=== PATIENT | female | born 1985 | race Caucasian/White ===

== ENCOUNTER 2016-09-25 09:59 | Emergency (ER) | payer OTHER ==
[2016-09-25 10:58] VITALS: BP 121/64
--- NOTE | 2016-09-25 12:11 | RAD ---
INDICATION: Right ankle injury. TECHNIQUE: 3 views of the right ankle were obtained. FINDINGS: Soft tissue swelling is noted along the anterolateral aspect of the ankle. No fracture is seen. Joint spaces appear maintained. IMPRESSION: SOFT TISSUE SWELLING, NO FRACTURE IS SEEN.
--- NOTE | 2016-09-25 12:12 | RAD ---
INDICATION: Right foot injury. TECHNIQUE: 2 views of the right foot were obtained. FINDINGS: The bones are in normal alignment. There is a small linear bony density adjacent to the anterior lateral aspect of the calcaneus possibly representing a small avulsion fracture fragment. IMPRESSION: POSSIBLE SMALL AVULSION FRACTURE FRAGMENT ARISING FROM THE ANTERIOR LATERAL CALCANEUS.
--- NOTE | 2016-10-07 16:59 | UC ---
Anabelle Pardo Anna, scribed for Sarika Mayes MD on 09/25/16 at 1117 . Lower Extremity/Ankle HPI - HPI Summary HPI Summary: Patient is a 30 y/o female coming [place] [facility] [place] with sudden onset of right ankle pain that began when she walked outside and rolled her ankle this morning. She fell from a standing height and landed on her knee and her left upper extremity. She describes the ankle pain as a sharp, constant ache with severity 10/10. She feels like there is a bubble in her upper left back. The patient is currently 29 weeks . The pain is exacerbated by standing and walking. She denies knee pain. Denies any bleeding. She feels the baby moving as normal. She denies Hx of DM. She has a standing appointment with Dr. Castro ([facility]) on 10/04. She last saw Dr. Castro last week, and all was well at that time. 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 - Accompanied by significant other Onset/Duration: Sudden Onset, Lasting Hours, Still Present Severity Initially: Moderate Severity Currently: Moderate Pain Intensity: 10 Pain Scale Used: 0-10 Numeric Aggravating Factor(s): Standing, Ambulation - Allergies/Home Medications Allergies/Adverse Reactions: Allergies Allergy/AdvReac Type Severity Reaction Status Date / Time No Known Allergies Allergy Verified 03/06/13 15:14 Home Medications: Home Medications Vitamin TAB* 09/25/16 [History] PMH/Surg Hx/FS Hx/Imm Hx Cardiovascular History Of: Denies: Hypertension GI/ History Of: Reports: Renal Disease - frequent kidney infections Psychological History Of: Reports: Depression - Surgical History Surgical History: Yes Surgery Procedure, Year, and Place: 03/03/13 D&C, GASTRIC SLEEVE 12/10/13 - Family History Known Family History: Positive: Other - FHx depression Negative: Cardiac Disease, Diabetes - Social History Occupation: Employed Full-time Lives: With Family Alcohol Use: None Substance Use Type: None Smoking Status (MU): Heavy Every Day Tobacco Smoker Type: Cigarettes Amount Used/How Often: daily Have You Smoked in the Last Year: Yes Household Exposure Type: Cigarettes - Immunization History Most Recent Influenza Vaccination: 03/24/15 Most Recent Tetanus Shot: 04/20/15 Most Recent Pneumonia Vaccination: never Review of Systems Constitutional: Negative Skin: Negative Eyes: Negative ENT: Negative Respiratory: Negative Cardiovascular: Negative Gastrointestinal: Negative Genitourinary: Negative Motor: Negative Neurovascular: Negative Musculoskeletal: Arthralgia, Myalgia Neurological: Negative Psychological: Negative All Other Systems Reviewed And Are Negative: Yes Physical Exam Triage Information Reviewed: Yes Appearance: Well-Nourished Vital Signs: Initial Vital Signs Temp 98.0 F 09/25/16 10:52 Pulse 84 09/25/16 10:52 Resp 16 09/25/16 10:52 BP 121/64 09/25/16 10:52 Pulse Ox 100 09/25/16 10:52 Vital Signs Reviewed: Yes Eye Exam: Normal ENT Exam: Normal Neck exam: Normal, Other - No adenopathy appreciated Respiratory Exam: Other - Little bit of tenderness left of mid-thoracic area on the back. Respiratory: Positive: No accessory muscle use, Wheezing - Expiratory wheezes throughout Cardiovascular Exam: Normal Cardiovascular: Positive: RRR, No Murmur, Pulses Normal, Brisk Capillary Refill Abdominal Exam: Normal Abdomen Description: Positive: Nontender, No Organomegaly, Soft Bowel Sounds: Positive: Present Musculoskeletal: Positive: Strength Intact, Edema @ - Talo-fibula ligament swollen. Did not appreciate any alice abnormality. Good pulses., Other: - 2 x 1.5 cm partial thickness abrasion on right knee. Little crepitus over the patella on the right knee. Otherwise nontender. Neurological Exam: Normal - Nonfocal, grossly intact Psychological Exam: Normal - conversing easily and appropriately Skin Exam: Normal - No visible or reported rash Diagnostics - Radiology Right Foot XR Xray Interpretation: Positive (See Comments) Radiology Interpretation Completed By: Radiologist - IMPRESSION: POSSIBLE SMALL AVULSION FRACTURE FRAGMENT ARISING FROM THE ANTERIOR LATERAL CALCANEUS. Right Ankle XR Xray Interpretation: Positive (See Comments) Radiology Interpretation Completed By: Radiologist - IMPRESSION: SOFT TISSUE SWELLING, NO FRACTURE IS SEEN. Re-Evaluation - Re-Evaluation First Eval Re-Evaluation Time: 12:14 Comment: Discussed results of XR and plan of care. Second Eval Re-Evaluation Time: 12:46 Comment: Discussed conversation with Dr. Anguiano and plan of care. Patient and family are agreeable with plan. Lower Extremity Course/Dx - Course Course Of Treatment: Denies need for inhaler but says she does have one at home if needed. Patient says she can take Tylenol. Crutches (she thinks she can tolerate crutches). She has a standing appointment with Dr. Castro on 10/04. No new problems in CCC. Considered below differential diagnoses. Reviewed Xray reports with Ms. Barbosa, and need recommendation for f/u pcp. Othopedic referral given. Questions answered as posed as possible. - Differential Dx/Diagnosis Provider Diagnoses: Acute R ankle sprain, with avulsion fx - Physician Notifications Discussed Patient Care With: Dr. Anguiano (orthopedics) at 1225. Agrees that the patient should be able to use a CAM boot and crutches. Discharge - Discharge Plan Condition: Stable Disposition: HOME Patient Education Materials: Ankle Sprain (ED), Contusion in Adults (ED), Avulsion Fracture (ED) Forms: *Work Release Referrals: Rajinder Castro MD [Medical Doctor] - Eder Anguiano MD [Medical Doctor] - Ben Peralta MD [Primary Care Provider] - Additional Instructions: Please follow up with your primary care provider and ObGyn provider per routine. Follow up with Dr. Anguiano (orhopedic surgeon) this week, if possible. Seek medical attention for worsening problems in the meantime. The documentation as recorded by the Anabelle gayle Anna accurately reflects the service I personally performed and the decisions made by me, Sarika aMyes MD.
== END 2016-09-25 13:06 | disposition home or self-care (01) ==
LOC: UCEAST 09:59
DX: O26.893 Other specified pregnancy related conditions, third trimester (principal); S93.401A Sprain of unspecified ligament of right ankle, initial encounter; S80.211A Abrasion, right knee, initial encounter; W19.XXXA Unspecified fall, initial encounter; Z3A.29 29 weeks gestation of pregnancy; Y93.9 Activity, unspecified; Y92.9 Unspecified place or not applicable; F17.210 Nicotine dependence, cigarettes, uncomplicated
CPT/HCPCS: 99212; G0463

== ENCOUNTER 2016-12-04 07:30 | Inpatient (IN) | payer OTHER ==
[2016-12-04] MEDS ORDERED: Oxytocin in LR* 20 UNITS/1,000 ML BAG IVPB ONE (09:00)
[2016-12-04] MEDS ORDERED: Oxytocin in LR* 20 UNITS/1,000 ML BAG IVPB SCH (09:00)
[2016-12-04 10:37] LABS: Hematocrit 38 % (35-47); Hemoglobin 12.2 g/dl (12.0-16.0); Mean Corpuscular HGB Conc 32 g/dl (31-36); Mean Corpuscular Hemoglobin 26 pg (27-31); Mean Corpuscular Volume 81 fL (80-97); Mean Platelet Volume 9 um3 (7.4-10.4); Red Blood Count 4.71 10^6/ul (4.0-5.4); Red Cell Distribution Width 24 % (10.5-15); White Blood Count 13.1 10^3/ul (3.5-10.8)
[2016-12-04 10:41] LABS: Add Diff/Slide Review? Slide Review Added; Comments Flag Yes
[2016-12-04] MEDS ORDERED: Glycerin ADULT SUPP PR PRN (15:13)
[2016-12-04] MEDS ORDERED: Dibucaine 1% 28.35 GM TUBE PR PRN (15:13)
[2016-12-04] MEDS ORDERED: Witch Hazel PAD* JAR TOPICAL PRN (15:13)
[2016-12-04] MEDS: Ibuprofen TAB* 600 MG PO PRN ×2 (15:31→21:29)
[2016-12-04] MEDS: Acetaminophen TAB* 325 MG PO PRN ×2 (16:37→20:38)
[2016-12-04] MEDS ORDERED: Simethicone CHEW TAB* 80 MG PO SCH (17:30)
[2016-12-04] MEDS: Docusate CAP* 100 MG PO SCH (20:37)
[2016-12-05] MEDS: Acetaminophen TAB* 325 MG PO PRN ×3 (00:33→14:03)
[2016-12-05] MEDS: Ibuprofen TAB* 600 MG PO PRN ×2 (03:53→10:10)
[2016-12-05] MEDS: Docusate CAP* 100 MG PO SCH ×2 (08:36→14:03)
[2016-12-05] MEDS ORDERED: Omeprazole CAP* 20 MG PO SCH (09:00)
[2016-12-05] MEDS: Ferrous Gluconate TAB* 324 MG TAB PO SCH ×2 (09:02→10:10)
[2016-12-05 09:34] LABS: Hematocrit 29 % (35-47); Hemoglobin 9.3 g/dl (12.0-16.0); Mean Corpuscular HGB Conc 32 g/dl (31-36); Mean Corpuscular Hemoglobin 26 pg (27-31); Mean Corpuscular Volume 81 fL (80-97); Mean Platelet Volume 8 um3 (7.4-10.4); Red Blood Count 3.58 10^6/ul (4.0-5.4); Red Cell Distribution Width 23 % (10.5-15); White Blood Count 13.9 10^3/ul (3.5-10.8)
[2016-12-05 09:41] LABS: Add Diff/Slide Review? Slide Review Added; Comments Flag Yes
[2016-12-05 10:38] LABS: Eosinophils % 2 % (0-6); Neutrophil % 72 % (38-83); RBC Morphology Normal (Normal)
[2016-12-05] MEDS ORDERED: medroxyPROGESTERone ACETATE (DEPOT)* 150 MG/ML 1 ML IM ONE (11:00)
[2016-12-05 11:41] VITALS: BP 112/60
== END 2016-12-05 15:43 | disposition home or self-care (01) | DRG 560 ==
LOC: MCHOBOUT 07:30 → MCHOB 08:36
PROVIDERS: ADMIT Obstetrics & Gynecology; ATTEND Obstetrics & Gynecology
PROC: 10E0XZZ Delivery of Products of Conception, External Approach (ICD-10-PCS; principal; 2016-12-04)
PROC: 10907ZC Drainage of Amniotic Fluid, Therapeutic from Products of Conception, Via Natural or Artificial Opening (ICD-10-PCS; 2016-12-04)
PROC: 4A1HX4Z Monitoring of Products of Conception, Cardiac Electrical Activity, External Approach (ICD-10-PCS; 2016-12-04)
DX: O40.3XX0 Polyhydramnios, third trimester, not applicable or unspecified (principal); F17.200 Nicotine dependence, unspecified, uncomplicated; O99.334 Smoking (tobacco) complicating childbirth; Z98.84 Bariatric surgery status; Z3A.39 39 weeks gestation of pregnancy; Z37.0 Single live birth; Z82.49 Family history of ischemic heart disease and other diseases of the circulatory system; Z83.3 Family history of diabetes mellitus; O76 Abnormality in fetal heart rate and rhythm complicating labor and delivery; O32.6XX0 Maternal care for compound presentation, not applicable or unspecified
CPT/HCPCS: 36415; 85025; 86850; 86900; 86901; A9270-GY; J1050

== ENCOUNTER 2017-02-06 06:30 | Day surgery (SDC) | payer OTHER ==
[~2017-02-06 06:30] MED LIST: Buffered Lidocaine 0.9% SYRIN* 5 ML/SYR SYRINGE INTRADERM ONE; Dexamethasone IV* 4 MG/ML 1 ML (4 MG) IV SLOW PU ONE; Dexamethasone TAB* 4 MG PO ONE; Famotidine IV* 10 MG/ML 2 ML (20 mg) IV ONE
[2017-02-06] MEDS ORDERED: Famotidine IV* 10 MG/ML 2 ML (20 mg) ONE (06:41)
[2017-02-06] MEDS ORDERED: Dexamethasone IV* 4 MG/ML 1 ML (4 MG) ONE (06:41)
[2017-02-06] MEDS ORDERED: ceFOXitin 2 GM IVPREMIX* 2 GM/50 ML BAG ONE (06:42)
[2017-02-06 07:11] LABS: UR Preg Internal Control QC Line Present
[2017-02-06] MEDS ORDERED: Bupivacaine 0.5% W/EPI SDV* 10 ML VIAL INJ ONE (07:14)
[2017-02-06] MEDS ORDERED: fentaNYL* 50 MCG/ML 2 ML VIAL (100 MCG VIAL) ONE ×3 (07:36→09:02)
[2017-02-06] MEDS ORDERED: Midazolam* 1 MG/ML 2 ML VIAL (2 MG) ONE (07:36)
[2017-02-06] MEDS ORDERED: Propofol* 10 MG/ML 20 ML BTL IV PUSH ONE (07:37)
[2017-02-06] MEDS ORDERED: Lidocaine 2% PF * 5 ML VIAL ONE (07:37)
[2017-02-06] MEDS ORDERED: Succinylcholine* 20 MG/ML 10 ML VIAL ONE (07:45)
[2017-02-06] MEDS ORDERED: DiMENhydriNATE IV* 50 MG/ML VIAL IV PUSH PRN (08:51)
[2017-02-06] MEDS: fentaNYL* 50 MCG/ML 2 ML VIAL (100 MCG VIAL) IV PRN ×2 (09:03→09:28)
[2017-02-06] MEDS ORDERED: oxyCODONE/Acetamin 5/325 MG* TAB ONE (09:06)
[2017-02-06 09:29] VITALS: BP 145/95
--- NOTE | 2017-02-07 03:51 | OP ---
DATE OF OPERATION: 02/06/17 [facility] DATE OF : 81 SURGEON: Rajinder Castro MD ANODE BUILDER: Kristie Hayes NP ANESTHESIOLOGIST: Rafy Gar MD ANESTHESIA: General anesthetic with endotracheal intubation. PRE-OP DIAGNOSIS: Multiparity, the patient desires permanent surgical sterilization. POST-OP DIAGNOSIS: Multiparity, the patient desires permanent surgical sterilization. OPERATIVE PROCEDURE: Bilateral laparoscopic tubal ligation with Filshie clips. ESTIMATED BLOOD LOSS: None. SPECIMEN: There were no specimens sent to Pathology. IV FLUIDS: She received 500 cc of IV crystalloid fluid. URINE OUTPUT: Clear. FINDINGS: Laparoscopic findings reveal a normal uterus, tubes and ovaries bilaterally with normal bowel, bladder and liver edge and there were no complications. DESCRIPTION OF PROCEDURE: The patient was taken to the operating room, where she was identified. She was placed on the operating table where a general anesthetic was obtained without difficulty. She was then placed in the dorsal lithotomy position, prepped and draped in a normal sterile fashion. Attention was then brought on to the patient's perineum where the bladder was catheterized with a Howard catheter and drained of clear urine. A speculum was then inserted into the vagina. The cervix was identified, grasped with a single -tooth tenaculum. The uterus was then sounded and after sounding the uterus a ClearView uterine manipulator was introduced to the cervix and the balloon and the manipulator were insufflated with 4 cc of sterile water. The single tooth tenaculum was removed as well as the speculum. Attention was then brought on to the patient's abdomen where a 1 cm infraumbilical skin incision was made with a knife and carried through to the underlying layer of fascia. The fascia was then brought up to the incision and nicked in the midline with a knife. Entry into the patient's abdomen was then confirmed using a Sabina clamp. The Bayron clamps on the fascia were then replaced with 0 Polysorb sutures and through this incision a 10 mm scope was introduced. The scope was attached to the 0 Polysorb sutures and the balloon and scope was insufflated with 20 cc of air. At this point, the patient's abdomen was insufflated with CO2 gas. A survey of the patient's intraabdominal and pelvic contents revealed findings as noted above. A second trocar was introduced under direct visualization about 4 cm above the symphysis pubis. Through this trocar, a Filshie clip applicator was introduced and Filshie clips were then applied to the fallopian tubes bilaterally with good blanching at the application site and complete coverage of the fallopian tube circumference. At this point, all the instruments were removed from the patient's abdomen and gas was removed from the patient's abdomen as well. The umbilical incision, the fascia was closed with 0 Polysorb suture in running fashion and the laparoscopic skin incisions were closed with 4 -0 Monocryl and subcuticular stitch. Instruments from the patient's vagina were also removed. Sponge, lap, and needle counts were correct x2. She tolerated the procedure well and was transferred to recovery room area in stable condition. [id number]/CPS #: [id number]
== END 2017-02-06 10:10 | disposition home or self-care (01) ==
LOC: OR 06:30
PROVIDERS: ATTEND Obstetrics & Gynecology
DX: Z30.2 Encounter for sterilization (principal); Z64.1 Problems related to multiparity; Z98.84 Bariatric surgery status; Z68.29 Body mass index [BMI] 29.0-29.9, adult
CPT/HCPCS: 81025; A9270-GY; C1776; J0330; J0694; J1100; J2250; J2704; J3010